=== PATIENT | female | born 1965 | race Caucasian/White ===

== ENCOUNTER 2025-01-19 17:42 | Emergency (ER) | payer OTHER ==
[~2025-01-19] VITALS: Ht 165.1 cm; Wt 74.8 kg
[2025-01-19] MEDS ORDERED: HYDROmorphONE Hydrochloride 0.5 MG/0.5 ML SYRINGE IV ONE (18:05)
[2025-01-19] MEDS ORDERED: Ondansetron Hydrochloride 4 MG/2 ML VIAL IV ONE (18:05)
[2025-01-19] MEDS ORDERED: SODIUM CHLORIDE 0.9% 1,000 ML IV ONE (18:05)
[2025-01-19] MEDS ORDERED: IOHEXOL 300 MG/ML 100 ML VIAL IV ONE (18:15)
[2025-01-19 18:32] LABS: BASO % 0.3 % (0.0-1.0); EOS # 0.1 10*3/uL (0.0-0.4); EOS % 1.5 % (1.0-4.0); HEMATOCRIT 39.1 % (37.0-47.0); MEAN CELL VOLUME 99.2 fl (81.0-99.0); MEAN CORPUSCULAR HGB 31.2 pg (27.0-31.0); MEAN CORPUSCULAR HGB CONC 31.5 g/dl (33.0-37.0); MEAN PLATELET VOLUME 10.4 fl (9.6-12.3); MONO # 0.3 10*3/uL (0.1-1.0); MONO % 4.9 % (3.0-9.0); NEUT # 4.4 10*3/uL (2.3-7.9); NEUT % 67.7 % (47.0-73.0); PLATELET COUNT AUTOMATED 162 10*3/uL (130-400); RED BLOOD COUNT 3.94 10*6/uL (4.10-5.10); RED CELL DISTRI WIDTH 13.8 % (0-14.5); WHITE BLOOD COUNT 6.5 10*3/uL (4.8-10.8)
[2025-01-19 18:53] LABS: ALKALINE PHOSPHATASE 103 U/L (46-116); BUN 19 mg/dl (9-23); CHLORIDE 107 mmol/L (98-107); LIPASE 42 U/L (12-53); POTASSIUM 3.6 mmol/L (3.4-5.1); SGPT/ALT 8 U/L (5-49); TOTAL PROTEIN 7.3 gm/dL (6.0-8.0)
[2025-01-19 19:37] LABS: BILIRUBIN Negative (Negative); BLOOD Negative (Negative); CLARITY Cloudy (Clear); COLOR Yellow (Yellow); GLUCOSE Negative (Negative); KETONE Trace (Negative); LEUKO ESTERASE 1+ (Negative); NITRITE Positive (Negative); UROBILINOGEN 0.2 E.U./dl (0.0-1.0)
[2025-01-19] MEDS ORDERED: Ketorolac Tromethamine 30 MG/ML VIAL IV ONE (19:50)
[2025-01-19 20:01] LABS: PH 8.5 (4.5-8.0)
[2025-01-19 20:02] LABS: BACTERIA 3+; EPITHELIAL CELLS 0-2; RBC 0-2 rbc/hpf (0-2)
[2025-01-19] MEDS ORDERED: cefTRIAXone Sodium 1 GM/10 ML SYR IV ONE (20:15)
[2025-01-19] MEDS ORDERED: CIPRO500 MG PO (20:49)
[2025-01-19] MEDS ORDERED: FLOMAX0.4 MG PO (20:49)
[2025-01-19] MEDS ORDERED: PERCOCET 5-3251 EACH PO (20:49)
[2025-01-19] MEDS ORDERED: Ondansetron4 MG PO (20:49)
== END 2025-01-19 23:25 | disposition home or self-care (01) ==
LOC: ED 17:42
PROVIDERS: Nurse Practitioner Family
DX: N13.2 Hydronephrosis with renal and ureteral calculous obstruction (principal); Z98.890 Other specified postprocedural states; Z98.84 Bariatric surgery status; Z90.711 Acquired absence of uterus with remaining cervical stump; Z96.651 Presence of right artificial knee joint

== ENCOUNTER → 2025-02-16 | Outpatient (CLI) | payer OTHER ==
[~2025-02-16] MED LIST: CIPRO500 MG PO; FLOMAX0.4 MG PO; Ondansetron4 MG PO; PERCOCET 5-3251 EACH PO
[2025-02-16 16:25] LABS: BASO % 0.4 % (0.0-1.0); EOS # 0.2 10*3/uL (0.0-0.4); EOS % 3.7 % (1.0-4.0); HEMATOCRIT 36.4 % (37.0-47.0); MEAN CELL VOLUME 97.6 fl (81.0-99.0); MEAN CORPUSCULAR HGB 31.4 pg (27.0-31.0); MEAN CORPUSCULAR HGB CONC 32.1 g/dl (33.0-37.0); MEAN PLATELET VOLUME 10.3 fl (9.6-12.3); MONO # 0.3 10*3/uL (0.1-1.0); MONO % 6.5 % (3.0-9.0); NEUT # 2.8 10*3/uL (2.3-7.9); NEUT % 54.1 % (47.0-73.0); PLATELET COUNT AUTOMATED 155 10*3/uL (130-400); RED BLOOD COUNT 3.73 10*6/uL (4.10-5.10); RED CELL DISTRI WIDTH 13.9 % (0-14.5); WHITE BLOOD COUNT 5.1 10*3/uL (4.8-10.8)
[2025-02-16 16:37] LABS: BILIRUBIN Negative (Negative); BLOOD Negative (Negative); CLARITY Clear (Clear); COLOR Yellow (Yellow); GLUCOSE Negative (Negative); KETONE Negative (Negative); LEUKO ESTERASE Negative (Negative); NITRITE Negative (Negative); PH 7.5 (4.5-8.0); SPECIFIC GRAVITY 1.015 (1.001-1.030)
[2025-02-16 16:47] LABS: BACTERIA 1+
[2025-02-16 16:49] LABS: ALKALINE PHOSPHATASE 77 U/L (46-116); BUN 17 mg/dl (9-23); CHLORIDE 105 mmol/L (98-107); POTASSIUM 4.3 mmol/L (3.4-5.1); SGPT/ALT 10 U/L (5-49); T3 UPTAKE 30.3 % (22.4-36.7); TOTAL PROTEIN 6.9 gm/dL (6.0-8.0)
[2025-02-16 17:07] LABS: FREE T4 1.19 ng/dl (0.89-1.76)
== END | disposition home or self-care (01) ==
LOC: LAB 16:03
PROVIDERS: ATTEND Nurse Practitioner
DX: N20.0 Calculus of kidney (principal); R53.83 Other fatigue

== ENCOUNTER → 2025-02-22 | Outpatient (CLI) | payer OTHER | END | disposition home or self-care (01) | LOC: CT 00:59 | PROVIDERS: ATTEND Urology | DX: N13.2 Hydronephrosis with renal and ureteral calculous obstruction (principal); Z90.710 Acquired absence of both cervix and uterus ==

== ENCOUNTER 2025-04-15 07:23 | Emergency (ER) | payer OTHER ==
[~2025-04-15] VITALS: Ht 162.5 cm; Wt 74.8 kg
[2025-04-15] MEDS ORDERED: Ondansetron Hydrochloride 4 MG/2 ML VIAL IV ONE (07:45)
[2025-04-15 08:01] LABS: BASO # 0.0 10*3/uL (0.0-0.1); BASO % 0.2 % (0.0-1.0); EOS # 0.0 10*3/uL (0.0-0.4); EOS % 0.1 % (1.0-4.0); MEAN CELL VOLUME 95.2 fl (81.0-99.0); MEAN CORPUSCULAR HGB 31.6 pg (27.0-31.0); MEAN PLATELET VOLUME 10.2 fl (9.6-12.3); MONO # 0.4 10*3/uL (0.1-1.0); MONO % 4.7 % (3.0-9.0); NEUT # 7.0 10*3/uL (2.3-7.9); NEUT % 80.4 % (47.0-73.0); NUCLEATED RED BLOOD CELL 0.0 % (0.0-0.0); NUCLEATED RED BLOOD CELL 0.0 10*3/uL (0.0-0.0); PLATELET COUNT AUTOMATED 195 10*3/uL (130-400); RED CELL DISTRI WIDTH 13.4 % (0-14.5)
[2025-04-15 08:24] LABS: BUN 16 mg/dl (9-23); SGPT/ALT 10 U/L (5-49)
[2025-04-15] MEDS ORDERED: SODIUM CHLORIDE 0.9% 1,000 ML IV ONE ×2 (09:50→11:10)
[2025-04-15] MEDS ORDERED: Promethazine Hydrochloride 25 MG/ML VIAL IV ONE (09:50)
[2025-04-15 09:51] LABS: BILIRUBIN Negative (Negative); BLOOD 3+ (Negative); CLARITY Turbid (Clear); COLOR Yellow (Yellow); KETONE Negative (Negative); LEUKO ESTERASE 1+ (Negative); NITRITE Negative (Negative); PH 7.5 (4.5-8.0); SPECIFIC GRAVITY 1.020 (1.001-1.030); UROBILINOGEN 0.2 E.U./dl (0.0-1.0)
[2025-04-15 10:16] LABS: BACTERIA 1+; EPITHELIAL CELLS 31-40; RBC TNTC rbc/hpf (0-2)
[2025-04-15] MEDS ORDERED: HYDROCODONE-AC1 EAC1 PO (14:23)
[2025-04-15] MEDS ORDERED: OMNICEF300 MG PO (14:23)
[2025-04-15] MEDS ORDERED: Phenergan25 MG PO (14:24)
== END 2025-04-15 14:41 | disposition home or self-care (01) ==
LOC: ED 07:23
PROVIDERS: Internal Medicine
DX: N13.2 Hydronephrosis with renal and ureteral calculous obstruction (principal); R11.2 Nausea with vomiting, unspecified; Z87.442 Personal history of urinary calculi; Z79.899 Other long term (current) drug therapy

== ENCOUNTER 2025-06-17 06:00 | Emergency (ER) | payer OTHER ==
[~2025-06-17] VITALS: Ht 165.1 cm; Wt 74.8 kg
[~2025-06-17 06:00] MED LIST changes: +HYDROCODONE-AC1 EAC1 PO; +OMNICEF300 MG PO; +Phenergan25 MG PO
[2025-06-17] MEDS ORDERED: Ondansetron Hydrochloride 4 MG/2 ML VIAL IV ONE (06:25)
[2025-06-17] MEDS ORDERED: SODIUM CHLORIDE 0.9% 1,000 ML IV ONE (07:45)
[2025-06-17 08:19] LABS: BASO # 0.0 10*3/uL (0.0-0.1); BASO % 0.1 % (0.0-1.0); EOS # 0.0 10*3/uL (0.0-0.4); EOS % 0.4 % (1.0-4.0); MEAN CELL VOLUME 97.1 fl (81.0-99.0); MEAN CORPUSCULAR HGB 30.4 pg (27.0-31.0); MEAN PLATELET VOLUME 10.5 fl (9.6-12.3); MONO # 0.5 10*3/uL (0.1-1.0); MONO % 6.0 % (3.0-9.0); NEUT # 6.0 10*3/uL (2.3-7.9); NEUT % 77.3 % (47.0-73.0); NUCLEATED RED BLOOD CELL 0.0 % (0.0-0.0); NUCLEATED RED BLOOD CELL 0.0 10*3/uL (0.0-0.0); PLATELET COUNT AUTOMATED 158 10*3/uL (130-400); RED CELL DISTRI WIDTH 13.6 % (0-14.5)
[2025-06-17] MEDS ORDERED: FLOMAX0.4 MG PO (08:31)
[2025-06-17] MEDS ORDERED: PERCOCET 5-3251 EACH PO (08:31)
[2025-06-17] MEDS ORDERED: CIPRO500 MG PO (08:31)
[2025-06-17] MEDS ORDERED: Ondansetron4 MG PO (08:31)
[2025-06-17 09:04] LABS: BUN 18 mg/dl (9-23)
[2025-06-17] MEDS ORDERED: Ondansetron Hydrochloride 4 MG TAB SL ONE (09:25)
== END 2025-06-17 09:37 | disposition home or self-care (01) ==
LOC: ED 06:00
PROVIDERS: Emergency Medicine
DX: N13.2 Hydronephrosis with renal and ureteral calculous obstruction (principal); Z79.899 Other long term (current) drug therapy